=== PATIENT | female | born 1990 | race Caucasian/White ===

== ENCOUNTER 2023-02-14 20:50 | Inpatient (IN) | payer BC, MEDICAID ==
[2023-02-14] MEDS ORDERED: OXYTOCIN-LR 30 UNITS/500ML 500 ML IV SCH (22:00)
[2023-02-14 22:50] LABS: HEMATOCRIT 32.2 % (36-48); MEAN CORPUSCULAR HEMOGLOBIN 32.8 pg (27.0-33.0); MEAN CORPUSCULAR HGB CONC 35.4 g/dL (32.0-36.0); MEAN CORPUSCULAR VOLUME 92.5 fL (79-99); RED BLOOD CELL COUNT(AUTO) 3.48 MIL/uL (4.00-5.50); RED CELL DISTRIBUTION WIDTH 14.8 % (11.0-15.5); WHITE BLOOD COUNT (AUTO) 10.7 K/uL (4.8-10.8)
[2023-02-14 23:20] LABS: APPEARANCE,URINE CLEAR (CLEAR); BILIRUBIN,URINE NEGATIVE (NEGATIVE); COLOR,URINE COLORLESS (YELLOW); GLUCOSE, URINE (UA) NEGATIVE (NEGATIVE); KETONES,URINE NEGATIVE (NEGATIVE); LEUKOCYTE ESTERASE ,URINE NEGATIVE Leu/uL (NEGATIVE); NITRATE,URINE NEGATIVE (NEGATIVE); OCCULT BLOOD,URINE NEGATIVE (NEGATIVE); PH,URINE 6.5 (5.0-8.0); PROTEIN,URINE NEGATIVE (NEGATIVE); UROBILINOGEN,URINE 0.2 mg/dL (0.2-1.0)
[2023-02-14 23:25] LABS: ADD UA MICROSCOPIC NO
[2023-02-14 23:34] LABS: HIV 1&2 ANTIBODY Non-Reactive (Negative); HIV-1 p24 Antigen Non-Reactive (Negative)
[2023-02-15] MEDS: LACTATED RINGERS 1000ML 1,000 ML IV PRN ×3 (05:39→12:32)
[2023-02-15] MEDS ORDERED: OXYTOCIN-LR 30 UNITS/500ML 500 ML IV SCH (06:00)
[2023-02-15] MEDS ORDERED: NALOXONE HCL 0.4 MG/1 ML ML IV PRN (11:00)
[2023-02-15] MEDS ORDERED: EPHEDRINE SULFATE 50 MG/ML AMPULE IVP PRN (11:00)
[2023-02-15] MEDS ORDERED: ROPIVACAINE 0.2% 100ML VIAL 100 ML EP SCH (11:00)
[2023-02-15] MEDS ORDERED: PROMETHAZINE HCL 25 MG/ML 1ML AMPULE IM PRN (11:00)
[2023-02-15] MEDS ORDERED: LACTATED RINGERS 500 ML 500 ML IV PRN (11:00)
[2023-02-15] MEDS ORDERED: MEPERIDINE-PF 50 MG/ML SYG IVP PRN (11:00)
[2023-02-15 11:24] LABS: RAPID PLASMA REAGIN NONREACTIVE (NONREACTIVE)
[2023-02-15] MEDS ORDERED: FENTANYL CITRATE PF 50 MCG/1 ML 2ML VIAL ONE (13:15)
[2023-02-15] MEDS ORDERED: LIDOCAINE HCL 1% 20 ML VIAL ONE (19:11)
[2023-02-15] MEDS ORDERED: LANOLIN 30GM OINTMENT TP PRN (20:30)
[2023-02-15] MEDS ORDERED: DIPH,PERTUSS(ACELL),TET VAC/PF 0.5 ML VIAL IM PRN (20:30)
[2023-02-15] MEDS ORDERED: MEASLES/MUMPS/RUBELLA VACCINE, LIVE 0.5 ML/VIAL SQ PRN (20:30)
[2023-02-15] MEDS ORDERED: ACETAMINOPHEN 325 MG TAB PO PRN (20:30)
[2023-02-15] MEDS ORDERED: WITCH HAZEL 1 PAD TP PRN (20:30)
[2023-02-15] MEDS ORDERED: BENZOCAINE/LANOLIN/ALOE VERA 60 ML AEROSOL TP PRN (20:30)
[2023-02-15] MEDS: DOCUSATE SODIUM 100 MG CAP PO SCH (20:54)
[2023-02-15] MEDS: ACETAMINOPHEN WITH CODEINE 1 TAB TAB PO PRN (20:54)
[2023-02-15] MEDS: OXYTOCIN-LR 30 UNITS/500ML 500 ML IV SCH (21:16)
[2023-02-15 21:25] VITALS: BP 142/71; PULSE 84; RESP 18
[2023-02-15] MEDS ORDERED: PREN-154 PO (23:08)
[2023-02-15 23:30] VITALS: BP 105/75; PULSE 82; RESP 18
[2023-02-16] MEDS: IBUPROFEN 600 MG TABLET PO PRN ×4 (01:32→23:04)
[2023-02-16 03:50] VITALS: BP 123/64; PULSE 99; RESP 18
[2023-02-16 07:40] VITALS: BP 135/75; PULSE 84; RESP 20
[2023-02-16] MEDS: DOCUSATE SODIUM 100 MG CAP PO SCH ×2 (08:38→19:55)
[2023-02-16 10:55] LABS: HEMATOCRIT 26.6 % (36-48); MEAN CORPUSCULAR HEMOGLOBIN 31.7 pg (27.0-33.0); MEAN CORPUSCULAR HGB CONC 33.8 g/dL (32.0-36.0); MEAN CORPUSCULAR VOLUME 93.7 fL (79-99); RED BLOOD CELL COUNT(AUTO) 2.84 MIL/uL (4.00-5.50); RED CELL DISTRIBUTION WIDTH 14.9 % (11.0-15.5); WHITE BLOOD COUNT (AUTO) 11.6 K/uL (4.8-10.8)
[2023-02-16 11:45] VITALS: BP 135/81; PULSE 98; RESP 20
[2023-02-16 16:00] VITALS: BP 130/77; PULSE 88; RESP 20
[2023-02-16 19:33] VITALS: BP 128/81; PULSE 92; RESP 18
[2023-02-16] MEDS: OXYTOCIN-LR 30 UNITS/500ML 500 ML IV SCH (20:30)
[2023-02-16 22:55] VITALS: BP 119/70; PULSE 80; RESP 18
[2023-02-17 03:42] VITALS: BP 125/78; PULSE 88; RESP 20
[2023-02-17] MEDS: ACETAMINOPHEN WITH CODEINE 1 TAB TAB PO PRN (03:55)
[2023-02-17] MEDS ORDERED: MEASLES/MUMPS/RUBELLA VACCINE, LIVE 0.5 ML/VIAL SQ ONE (06:30)
[2023-02-17 07:42] VITALS: BP 132/73; PULSE 83
[2023-02-17] MEDS: DOCUSATE SODIUM 100 MG CAP PO SCH (08:06)
[2023-02-17] MEDS: IBUPROFEN 600 MG TABLET PO PRN (08:06)
[2023-02-17 11:08] VITALS: BP 126/71; PULSE 100
== END 2023-02-17 14:20 | disposition home or self-care (01) | DRG 807 ==
LOC: LDH 20:54 → WSH 02-15 21:09
PROVIDERS: ADMIT Obstetrics & Gynecology; ATTEND Obstetrics & Gynecology
PROC: 10E0XZZ Delivery of Products of Conception, External Approach (ICD-10-PCS; principal; 2023-02-15)
PROC: 0KQM0ZZ Repair Perineum Muscle, Open Approach (ICD-10-PCS; 2023-02-15)
PROC: 3E0R3BZ Introduction of Anesthetic Agent into Spinal Canal, Percutaneous Approach (ICD-10-PCS; 2023-02-15)
PROC: 00HU33Z Insertion of Infusion Device into Spinal Canal, Percutaneous Approach (ICD-10-PCS; 2023-02-15)
PROC: 3E0234Z Introduction of Serum, Toxoid and Vaccine into Muscle, Percutaneous Approach (ICD-10-PCS; 2023-02-17)
DX: O70.1 Second degree perineal laceration during delivery (principal); Z37.0 Single live birth; Z3A.39 39 weeks gestation of pregnancy; Z23 Encounter for immunization
CPT/HCPCS: 36415; 81003; 85027; 86592; 86701; 86850; 86900; 86901; 87340; 87390; 90707; 90715; A4314; G0378; J2175; J2550; J2795; J3010; J7120